=== PATIENT | female | born 1985 | race Caucasian/White ===

== ENCOUNTER 2018-08-16 19:59 | Emergency (ER) | payer OTHER ==
[~2018-08-16] VITALS: Ht 157.5 cm; Wt 88.5 kg
== END 2018-08-16 22:34 | disposition home or self-care (01) ==
LOC: ER 19:59
DX: R07.89 Other chest pain (principal); F06.4 Anxiety disorder due to known physiological condition; M94.0 Chondrocostal junction syndrome [Tietze]

== ENCOUNTER 2018-10-23 09:20 | Outpatient (CLI) | payer OTHER | END 2018-10-23 09:23 | disposition home or self-care (01) | LOC: RAD 09:20 | DX: R00.2 Palpitations (principal); R05 Cough ==